=== PATIENT | male | born 1960 | race Caucasian/White ===

== ENCOUNTER 2020-03-26 11:14 | Outpatient (CLI) | payer OTHER | END 2020-03-26 11:30 | disposition home or self-care (01) | LOC: SONOGRAMA 11:14 | PROVIDERS: ATTEND Neuromusculoskeletal Medicine, Sports Medicine | DX: M25.511 Pain in right shoulder (principal) ==

== ENCOUNTER → 2020-05-21 | Outpatient (CLI) | payer OTHER | END | disposition home or self-care (01) | LOC: MRI 12:19 | PROVIDERS: ATTEND Neuromusculoskeletal Medicine, Sports Medicine | DX: M25.511 Pain in right shoulder (principal) | CPT/HCPCS: 73221 ==

== ENCOUNTER → 2020-05-28 | Outpatient (CLI) | payer OTHER | END | disposition home or self-care (01) | LOC: RAD 15:34 | DX: R06.09 Other forms of dyspnea (principal); J30.89 Other allergic rhinitis; K21.9 Gastro-esophageal reflux disease without esophagitis ==

== ENCOUNTER → 2021-01-15 12:26 | Outpatient (CLI) | payer OTHER | END | disposition home or self-care (01) | LOC: SONOGRAMA 12:26 → MAMO-SONO 12:30 | PROVIDERS: ATTEND Podiatrist Foot Surgery | DX: G57.61 Lesion of plantar nerve, right lower limb (principal) ==

== ENCOUNTER → 2021-02-15 | Outpatient (CLI) | payer OTHER | END | disposition home or self-care (01) | LOC: TOM 08:28 | DX: J32.0 Chronic maxillary sinusitis (principal); I11.9 Hypertensive heart disease without heart failure ==

== ENCOUNTER 2021-03-04 07:35 | Outpatient (CLI) | payer OTHER | END 2021-03-04 08:00 | disposition home or self-care (01) | LOC: SONOGRAMA 07:35 | PROVIDERS: ATTEND Urology | DX: R97.20 Elevated prostate specific antigen [PSA] (principal) ==

== ENCOUNTER 2021-07-16 08:54 | Outpatient (CLI) | payer OTHER | END 2021-07-16 08:55 | disposition home or self-care (01) | LOC: LAB 08:54 | PROVIDERS: ATTEND Radiology Diagnostic Radiology | DX: R10.9 Unspecified abdominal pain (principal) ==

== ENCOUNTER 2021-07-16 10:51 | Outpatient (CLI) | payer OTHER | END 2021-07-16 11:00 | disposition home or self-care (01) | LOC: TOM 10:51 | DX: R97.20 Elevated prostate specific antigen [PSA] (principal) ==

== ENCOUNTER 2021-12-05 13:04 | Outpatient (CLI) | payer OTHER | END 2021-12-05 13:30 | disposition home or self-care (01) | LOC: RAD 13:04 | DX: M17.0 Bilateral primary osteoarthritis of knee (principal) ==